=== PATIENT | male | born 1995 | race Caucasian/White ===

== ENCOUNTER → 2022-03-28 | Outpatient (CLI) | payer SELFPAY ==
--- NOTE | 2022-03-28 17:34 | CT_ITS ---
INDICATION: CHRONIC SINUSITIS EXAMINATION: CT FACIAL BONES - CT Maxillofacial W/O Contrast Injection TECHNIQUE: Helically acquired images were obtained of the facial bones. Sagittal and coronal reformats reviewed. A radiation dose optimization technique was used for this scan. IV Contrast dosage and agent: None. COMPARISON: None. FINDINGS: Mild mucosal thickening right anterior ethmoid air cells. Minimal bilateral maxillary sinus mucosal thickening with small left maxillary sinus mucosal retention cyst. No sinus fluid levels. Patent bilateral ostiomeatal units. Mucosal thickening involving right alfredito bullosa. Minimal leftward bowing of nasal septum. Osseous structures are intact with no suspicious osseous lesion. No significant soft tissue swelling. Normal alignment of the mandible and maxilla. Unremarkable bilateral orbits and globes. Bilateral mastoid air cells and middle ear cavities are well-pneumatized. External auditory canals are patent. Unremarkable upper airway and pharynx. CT/Sinus/Facial Bone IMPRESSION: Mild sinus inflammatory changes with no evidence of acute sinusitis. Right alfredito bullosa with minimal leftward bowing of nasal septum. Electronically Signed: Hudson Adhikari MD at 4:52 EST ,
== END | disposition home or self-care (01) ==
PROVIDERS: PCP Family Medicine; Visit Provider Otolaryngology
DX: J32.8 Other chronic sinusitis (principal)
CPT/HCPCS: 70486